=== PATIENT | female | born 1940 | race Hispanic/Latino ===

== ENCOUNTER → 2017-12-30 | Outpatient (CLI) | payer MEDICARE ==
[~2017-12-30] VITALS: Ht 157.5 cm; Wt 63.5 kg
[~2017-12-30] MED LIST: METF500T6 PO; METO50TA18 PO; OMEP40CA37 PO; REGADENOSON 0.4 MG/5 ML PF SYG IVP SCH; RIVA20TA PO; VENL75TA63 PO
== END | disposition home or self-care (01) ==
LOC: SHCH 08:42
PROVIDERS: ATTEND Internal Medicine Cardiovascular Disease
DX: R06.00 Dyspnea, unspecified (principal); I10 Essential (primary) hypertension; E78.5 Hyperlipidemia, unspecified; I48.91 Unspecified atrial fibrillation; E11.9 Type 2 diabetes mellitus without complications
CPT/HCPCS: 78452; 93017; 96374; A9500 ×2; J2785

== ENCOUNTER → 2019-05-11 | Outpatient (CLI) | payer MEDICARE ==
[~2019-05-11] MED LIST changes: +ATOR10TA69 PO; +BIOT10005 PO; +CHOL400T4 PO; +CYAN50003 PO; +FURO40TA5 PO; +HYDR-4457 PO; +IRON18TA PO; +LACT1CAP68 PO; +MELA10TA2 PO; +METF500S7 PO; -METF500T6 PO; -METO50TA18 PO; +MONT10TA24 PO; +NITR0.4T50 SL; -REGADENOSON 0.4 MG/5 ML PF SYG IVP SCH; +TAMO20TA4 PO; +VENL37.587 PO; -VENL75TA63 PO; +VITA400T7 PO
--- NOTE | 2019-05-11 12:16 | NUR ---
MBSS COMPLETED. -S/S OF ASPIRATION. RECOMMEND REGULAR DIET AND THIN LIQUIDS; PILLS WHOLE WITH LIQUID. Addendum: 05/11/[address] [facility] Amended: Links added.
== END | disposition home or self-care (01) ==
LOC: RAH 10:55
PROVIDERS: ATTEND Internal Medicine
DX: K21.9 Gastro-esophageal reflux disease without esophagitis (principal); R13.10 Dysphagia, unspecified
CPT/HCPCS: 74230; 92611

== ENCOUNTER 2020-07-06 07:09 | Day surgery (SDC) | payer MEDICARE ==
[~2020-07-06] VITALS: Ht 157.5 cm; Wt 6.4 kg
[~2020-07-06 07:09] MED LIST changes: -MONT10TA24 PO; +MONT10TA26 PO; +OMEP40CA13 PO; -OMEP40CA37 PO; +SODIUM CHLORIDE 0.9% 1000ML 1,000 ML IV ONE
[2020-07-06 07:40] VITALS: BP 120/81
[2020-07-06] MEDS ORDERED: MOME17SP10 NS (08:45)
[2020-07-06] MEDS ORDERED: MULT-1247 PO (08:45)
[2020-07-06] MEDS ORDERED: [UNRECOGNIZED DRUG - CODE] PO (08:45)
[2020-07-06] MEDS ORDERED: BUSP10TA3 PO (08:45)
[2020-07-06] MEDS ORDERED: IPRA4AER IH (08:45)
[2020-07-06] MEDS ORDERED: [UNRECOGNIZED DRUG - OTHER] PO (08:45)
[2020-07-06] MEDS ORDERED: FOLI1TAB82 PO (08:45)
[2020-07-06] MEDS ORDERED: DULO30CA2 PO (08:45)
[2020-07-06] MEDS ORDERED: ADV250 IH (08:45)
[2020-07-06] MEDS ORDERED: LINA5TAB PO (08:45)
[2020-07-06] MEDS ORDERED: CETI10TA57 PO (08:45)
[2020-07-06] MEDS ORDERED: ESOM40CA54 PO (08:45)
[2020-07-06] MEDS ORDERED: [UNRECOGNIZED DRUG - OTHER] PO (08:45)
[2020-07-06] MEDS ORDERED: VITA100014 PO (08:45)
[2020-07-06] MEDS ORDERED: ASCO100031 PO (08:45)
[2020-07-06] MEDS ORDERED: PROPOFOL 10 MG/ML 20ML VIAL IV ONE (09:51)
[2020-07-06] MEDS ORDERED: ESMOLOL HCL 10 MG/ML 10 ML VIAL ONE (09:52)
--- NOTE | 2020-07-06 12:50 | NUR ---
Update Accidently erased vital signs but patient was at baseline when discharged.
== END 2020-07-06 10:55 | disposition home or self-care (01) ==
LOC: ENDO 07:09 → DAH 07:09 → ENDO 10:55
PROVIDERS: ATTEND Internal Medicine Gastroenterology
DX: R10.11 Right upper quadrant pain (principal); R13.19 Other dysphagia; K44.9 Diaphragmatic hernia without obstruction or gangrene; K22.2 Esophageal obstruction; K29.50 Unspecified chronic gastritis without bleeding; K21.9 Gastro-esophageal reflux disease without esophagitis; E11.9 Type 2 diabetes mellitus without complications; I10 Essential (primary) hypertension; I48.91 Unspecified atrial fibrillation; B37.81 Candidal esophagitis; Z20.828 Contact with and (suspected) exposure to other viral communicable diseases
CPT/HCPCS: 43239; 43248; 82948 ×2; 88305; 88342; 93005; A4215; A4221; A4222; A4223; A4606; A4620; A4657; A4663; C9803; J2704; J3490; J7030; U0003

== ENCOUNTER → 2021-02-27 | Outpatient (CLI) | payer MEDICARE ==
[~2021-02-27] MED LIST changes: +ADV250 IH; +ASCO100031 PO; +BUSP10TA3 PO; +CETI10TA57 PO; +DULO30CA2 PO; +ESOM40CA54 PO; +FOLI1TAB82 PO; -HYDR-4457 PO; +IPRA4AER IH; -IRON18TA PO; +LINA5TAB PO; +MOME17SP10 NS; -MONT10TA26 PO; +MONT10TA32 PO; +MULT-1247 PO; -SODIUM CHLORIDE 0.9% 1000ML 1,000 ML IV ONE; +VITA100014 PO; +[UNRECOGNIZED DRUG - CODE] PO; +[UNRECOGNIZED DRUG - OTHER] PO; +[UNRECOGNIZED DRUG - OTHER] PO
== END | disposition home or self-care (01) ==
LOC: SHCH 13:41
PROVIDERS: ATTEND Internal Medicine Cardiovascular Disease
DX: I87.2 Venous insufficiency (chronic) (peripheral) (principal)
CPT/HCPCS: 93970

== ENCOUNTER → 2023-01-22 | Outpatient (CLI) | payer OTHER, MEDICARE ==
[~2023-01-22] MED LIST changes: -METF500S7 PO; +METF500S9 PO; -MOME17SP10 NS; +MOME17SP12 NS; +MONT-39 PO; -MONT10TA32 PO; -OMEP40CA13 PO; +OMEP40CA21 PO
== END | disposition home or self-care (01) ==
LOC: SHCH 15:10
PROVIDERS: ATTEND Internal Medicine Cardiovascular Disease
DX: I87.2 Venous insufficiency (chronic) (peripheral) (principal); I87.1 Compression of vein
CPT/HCPCS: 93970

== ENCOUNTER → 2024-06-11 | Outpatient (CLI) | payer OTHER, MEDICARE ==
[~2024-06-11] MED LIST changes: -CYAN50003 PO; +CYAN50007 PO; -ESOM40CA54 PO; +ESOM40CA66 PO
== END | disposition home or self-care (01) ==
LOC: SHCH 11:06
PROVIDERS: ATTEND Internal Medicine Cardiovascular Disease
DX: I08.1 Rheumatic disorders of both mitral and tricuspid valves (principal)
CPT/HCPCS: 93306